=== PATIENT | female | born 1995 | race Caucasian/White ===

== ENCOUNTER 2016-03-13 08:22 | Emergency (ER) | payer OTHER ==
[~2016-03-13] VITALS: Ht 157.5 cm; Wt 54.4 kg
[~2016-03-13 08:22] MED LIST: FLEXERIL10 MG PO; MOTRIN 600 MG600 MG PO; ZOFRAN4 M1 SL
[2016-03-13 08:27] VITALS: BP 115/68
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
[2016-03-13] MEDS ORDERED: NOR-Q-D0.35 MG PO (08:35)
[2016-03-13] MEDS ORDERED: CYCLOBENZAPRINE10 M1 PO (08:39)
[2016-03-13] MEDS ORDERED: IBUPROFEN600 M1 PO (08:39)
== END 2016-03-13 08:50 ==
LOC: ERH 08:22
DX: S16.1XXA Strain of muscle, fascia and tendon at neck level, initial encounter (principal); V89.2XXA Person injured in unspecified motor-vehicle accident, traffic, initial encounter